=== PATIENT | female | born 1990 | race Caucasian/White ===

== ENCOUNTER 2016-03-22 12:51 | Emergency (ER) ==
--- NOTE | 2016-03-22 14:28 | PROVIDER DOCUMENTATION ---
[facility] General - General Source: patient - History of Present Illness-[facility] General [facility] Location: reports: ear (R) Quality of Pain: reports: aching Severity: reports: moderate Onset/Duration: reports: 4 days ago Timing: reports: still present Prearrival Treatment: Initiated no prearrival treatment Associated Symptoms: reports: denies symptoms Locality of Occurance: Home Similar Symptoms Previously?: No Recently seen or treated by another doctor?: No <Avery Hernandez - Last Filed: 03/22/16 14:24> <Alla Campos - Last Filed: 03/22/16 15:26> - General Chief Complaint: Earache Stated Complaint: JAW/EAR PAIN Time Seen by Provider: 03/22/16 14:11 Allergies/Adverse Reactions: Patient Allergies Allergy/AdvReac Type Severity Reaction Status Date / Time No Known Allergies Allergy Verified 05/23/15 22:41 - History of Present Illness-[facility] General Nature of Presenting Problem: Reports right jaw pain radiating into right ear x 4 days. Denies taking otc medicaitons. Reports wants a blood test. (Avery Hernandez) Review of Systems - Adult - REVIEW OF SYSTEMS - ADULT Constitutional: denies: chills, fever, fatique Eyes: reports: no symptoms reported Ears, Nose, Mouth & Throat: reports: see HPI, ear pain. denies: sinus problem, throat pain Cardiovascular: reports: no symptoms reported Respiratory: denies: cough, shortness of breath, wheezing Gastrointestinal: reports: no symptoms reported Genitourinary: reports: no symptoms reported Musculoskeletal: reports: no symptoms reported Integumentary: reports: no symptoms reported Neurological: reports: no symptoms reported Psychiatric: reports: no symptoms reported Endocrine: reports: no symptoms reported Hematologic/Lymphatic: reports: no symptoms reported Allergic/Immunologic: reports: no symptoms reported All Other Systems: Reviewed and Negative <Avery Hernandez - Last Filed: 03/22/16 14:24> Past History - Adult - PAST MEDICAL HISTORY-ADULT Review of Records: reports: Nursing Assessment Review Major Childhood Illnesses: reports: denies history Cardiovascular: reports: denies history Respiratory: reports: asthma Gastrointestinal: reports: denies history Obstetrical/Gynecological: reports: denies history Genitourinary: reports: kidney stones, chronic UTI's Musculoskeletal: reports: denies history Neurological: reports: denies history Psychiatric: reports: other (panic attack) Endocrine/Immune: reports: denies history 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 on dangers of tobacco.: Discussed manners to quit use, and f/u contacts for add'l counseling. Substance Use: alcohol, marijuana <Avery Hernandez - Last Filed: 03/22/16 14:24> Physical Exam- EENT - Physical Exam EENT Initial Vital Signs Reviewed: Yes General Appearance: appears well, alert, no apparent distress Eye Exam: bilateral eye: normal inspection, PERRL, EOMI Ear Exam: bilateral ear: auricle normal, canal normal, TM normal Nasal Exam: normal inspection Throat Exam: dental tenderness, other (right and left 3rd upper molar dental caries). negative: maxillary swelling, pharynx swelling, pharynx tenderness Respiratory: chest non-tender, lungs clear, normal breath sounds, no pleuratic chest pain, no respiratory distress, no accessory muscle use Cardiovascular: normal peripheral pulses, regular rate, rhythm, no edema, no gallop, no JVD, no murmur Abdominal Exam: normal bowel sounds, non tender, soft, no organomegaly, no pulsatile mass Lymphatic: no adenopathy Back Exam: normal inspection, no CVA tenderness, no vertebral tenderness Extremity: normal range of motion, non-tender, normal gait, normal inspection, no pedal edema, no calf tenderness, normal capillary refill, pelvis stable Integumentary: normal color, normal turgor, warm/dry 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, no motor/sensory deficits Psych/Mental Status: AL, normal mood/affect, normal thought content, normal thought process, oriented x 3 <Avery Hernandez - Last Filed: 03/22/16 14:24> Progress <Aveyr Hernandez - Last Filed: 03/22/16 14:24> <Alla Campos - Last Filed: 03/22/16 15:26> - PLAN OF CARE/RESULTS Progress/Plan/Lab Results: Orders Category Date Time Status TEST-SERUM [PREG] Stat Lab 03/22/16 14:18 Ordered Vital Signs - 24 hr 03/22/16 12:56 Temperature 97.6 F Pulse Rate 97 H Respiratory 18 Rate Blood Pressure 138/102 O2 Sat by Pulse 100 Oximetry (Avery Hernandez) Vital Signs Temp Pulse Resp BP Pulse Ox 03/22/16 12:56 97.6 F 97 H 18 138/102 100 No Known Allergies Allergy (Verified 05/23/15 22:41) Albuterol Sulfate Inhaler [Ventolin Hfa] 2 puff INH Q6H PRN PRN #1 inhaler 05/23 Hydrocodone/APAP 7.5 mg/325 mg [[place]-7.5] 1 each PO Q6H PRN PRN #10 tablet Ondansetron [Zofran] 4 mg PO Q6H PRN PRN #20 tablet 05/24/15 Sulfamethoxazole/Trimethoprim [Bactrim Ds Tablet] 1 each PO BID #14 tablet 05/23 Laboratory 03/22/16 14:57 Serum , Qual NEGATIVE Orders Category Date Time Status TEST-SERUM [PREG] Stat Lab 03/22/16 14:57 Completed (Alla Campos) Departure <Avery Hernandez - Last Filed: 03/22/16 14:24> - Departure Time of Disposition Order: 15:25 Certified Medical Emergency: Emergent <Alla Campos - Last Filed: 03/22/16 15:26> - Departure DIAGNOSIS: Dental infection, test negative Disposition: HOME 01 Condition: Stable Additional Instructions: Follow up with the dentist ED Follow Up Instructions: You have been treated by a care provider in the Emergency Department. These instructions are being provided to you so you can have an understanding of how to care for yourself upon discharge. Upon discharge from the Emergency Department, you are responsible for making arrangements for follow-up care by a physician of your choice. Take all prescribed medications as directed. Return to the Emergency Department immediately for any new or worsening symptoms. You may call the Physician Referral phone number at [phone] to obtain a list of Physicians who are taking new patients. Prescriptions: Cephalexin [Keflex] 500 mg PO BID #20 capsule Acetaminophen with Codeine [Tylenol with Codeine #3] 1 each PO Q4H PRN PRN #10 tablet PRN Reason: Pain Attestation - Scribe Verification/Attestation Scribe:: Avery Hernandez Acting as Scribe for:: Alla Campos Scribe documention review:: This chart was documented by a scribe and accurately reflects the service the provider performed and the decisions made by the provider. <Avery Hernandez - Last Filed: 03/22/16 14:24> - Physician/ Mid-level Attestation Patient care was provided by Mid-level provider (PUBLIC BATH ATTENDANT/PA):: Yes Mid-level provider:: Alla Campos Mid-level documentation review:: The Mid-level provider documentation, treatment plan and medical decision making was reviewed by the physician who agrees with all treatment and medical decision making by the MLP. <Alla Campos - Last Filed: 03/22/16 15:26> Physician Attestation
[2016-03-22] MEDS ORDERED: NORCO-5 PO ONE (15:52)
[2016-03-22 15:59] VITALS: BP 136/91
== END 2016-03-22 15:58 | disposition home or self-care (01) ==
LOC: P.ED 12:51
DX: K04.7 Periapical abscess without sinus (principal); H92.01 Otalgia, right ear; R68.84 Jaw pain; K02.9 Dental caries, unspecified; F17.210 Nicotine dependence, cigarettes, uncomplicated; Z32.02 Encounter for pregnancy test, result negative; Z71.6 Tobacco abuse counseling; Z87.442 Personal history of urinary calculi; Z87.440 Personal history of urinary (tract) infections; Z86.14 Personal history of Methicillin resistant Staphylococcus aureus infection
CPT/HCPCS: 36415; 84703; 99283